=== PATIENT | female | born 1970 | race Caucasian/White ===

== ENCOUNTER 2017-10-24 07:47 | Day surgery (SDC) | payer OTHER ==
[2017-10-23 15:18] LABS: CHLORIDE,CL 101 mmol/L (98-107); SODIUM,NA 137 mmol/L (136-145)
[~2017-10-24 07:47] MED LIST: Lactated Ringers 1,000 ML IV SCH; Sodium Chloride 0.9% 10 ML Syringe FLUSH PRN; Sodium Chloride 0.9% 2.5 ML Syringe FLUSH PRN; ceFAZolin 2 GM in Premix Bag 1 BAG IV ONE
[2017-10-24] MEDS ORDERED: Scopolamine 1.5 MG Transdermal Patch TRDERM PRN (08:16)
--- NOTE | 2017-10-24 08:16 | PCM.PREANE ---
Preanesthetic Assessment - Anesthesia/Transfusion/Family Hx Anesthesia History: Prior Anesthesia Without Reaction Family History of Anesthesia Reaction: No Transfusion History: No Prior Transfusion(s) Intubation History: Unknown - Review of Systems General: No Symptoms Pulmonary: No Symptoms Cardiovascular: No Symptoms Gastrointestinal: No Symptoms Neurological: No Symptoms Other: Reports: None - Physical Assessment O2 Sat by Pulse Oximetry: 99 Respiratory Rate: 16 Vital Signs: Last Vital Signs Temp 36.3 C 10/24/17 08:04 Pulse 89 10/24/17 08:04 Resp 16 10/24/17 08:04 BP 142/90 H 10/24/17 08:04 Pulse Ox 99 10/24/17 08:04 Height: 1.63 m Weight: 100.244 kg ASA Class: 2 Mental Status: Alert & Oriented x3 Airway Class: Mallampati = 2 Dentition: Reports: Normal Dentition Thyro-Mental Finger Breadths: 3 Mouth Opening Finger Breadths: 2 (very narow mouth) Lungs: Clear to Auscultation, Normal Respiratory Effort Cardiovascular: Regular Rate, Regular Rhythm - Lab Values: Laboratory Last Values WBC 10.94 K/uL (4.0-11.0) 10/23/17 14:45 RBC 4.52 M/uL (4.30-5.90) 10/23/17 14:45 Hgb 12.5 g/dL (12.0-16.0) 10/23/17 14:45 Hct 37.8 % (36.0-46.0) 10/23/17 14:45 MCV 83.6 fL (80.0-98.0) 10/23/17 14:45 MCH 27.7 pg (27.0-32.0) 10/23/17 14:45 MCHC 33.1 g/dL (31.0-37.0) 10/23/17 14:45 RDW Std Deviation 41.1 fl (28.0-62.0) 10/23/17 14:45 RDW Coeff of Jeffery 14 % (11.0-15.0) 10/23/17 14:45 Plt Count 297 K/uL (150-400) 10/23/17 14:45 MPV 9.40 fL (7.40-12.00) 10/23/17 14:45 Nucleated RBC % 0.0 /100WBC 10/23/17 14:45 Nucleated RBCs # 0 K/uL 10/23/17 14:45 Sodium 137 mmol/L (136-145) 10/23/17 14:45 Potassium 3.4 mmol/L (3.5-5.1) L 10/23/17 14:45 Chloride 101 mmol/L (98-107) 10/23/17 14:45 Carbon Dioxide 27.5 mmol/L (21.0-32.0) 10/23/17 14:45 BUN 15 mg/dL (7.0-18.0) 10/23/17 14:45 Creatinine 0.9 mg/dL (0.6-1.0) 10/23/17 14:45 Est Cr Clr Drug Dosing 68.16 mL/min 10/23/17 14:45 Estimated GFR (MDRD) > 60.0 ml/min 10/23/17 14:45 Glucose 91 mg/dL (74-106) 10/23/17 14:45 Calcium 8.6 mg/dL (8.5-10.1) 10/23/17 14:45 HCG, Qual NEGATIVE (NEG) 10/23/17 14:45 Blood Type B NEGATIVE 10/23/17 14:45 Antibody Screen NEGATIVE 10/23/17 14:45 - Allergies Allergies/Adverse Reactions: Allergies Allergy/AdvReac Type Severity Reaction Status Date / Time diltiazem Allergy Rash Verified 10/24/17 08:10 - Blood Blood Available: No - Anesthesia Plan Pre-Op Medication Ordered: None Beta Selene: Metoprolol Med Last Dose Date: 10/24/17 Med Last Dose Time: 07:00 - Acknowledgements Anesthesia Type Planned: General Anesthesia Pt an Appropriate Candidate for the Planned Anesthesia: Yes Alternatives and Risks of Anesthesia Discussed w Pt/Guardian: Yes Pt/Guardian Understands and Agrees with Anesthesia Plan: Yes PreAnesthesia Questionnaire HEENT History: Reports: Other (See Below) Other HEENT History: wears glasses Cardiovascular History: Reports: High Cholesterol, Hypertension Gastrointestinal History: Reports: Other (See Below) Other Gastrointestinal History: occasional heartburn Psychiatric History: Reports: Anxiety, Depression Endocrine/Metabolic History: Reports: Obesity/BMI 30+ Hematologic History: Reports: None - Past Surgical History Head Surgeries/Procedures: Reports: None HEENT Surgical History: Reports: Tonsillectomy - SUBSTANCE USE Smoking Status *Q: Never Smoker Recreational Drug Use History: No - HOME MEDS Home Medications: Home Meds Cetirizine [ZyrTEC] 10 mg PO ASDIRECTED 10/22/17 [History] Cholecalciferol (Vitamin D3) [Vitamin D3] 5,000 units PO DAILY 10/22/17 [History ] Metoprolol Tartrate 100 mg PO DAILY 10/22/17 [History] Sertraline HCl 100 mg PO DAILY 10/22/17 [History] Veramyst 1 spray NASBOTH ASDIRECTED PRN 10/22/17 [History] atorvaSTATin Calcium [Atorvastatin Calcium] 10 mg PO DAILY 10/22/17 [History] hydroCHLOROthiazide [Hydrochlorothiazide] 25 mg PO DAILY 10/22/17 [History] - CURRENT (IN HOUSE) MEDS Current Meds: Current Medications Lactated Ringer's (Ringers, Lactated) 1,000 mls @ 500 mls/hr IV BOLUS MADELYN Last Admin: 10/24/17 08:13 Dose: 500 mls/hr Sodium Chloride (Saline Flush) 10 ml FLUSH ASDIRECTED PRN PRN Reason: Keep Vein Open Sodium Chloride (Saline Flush) 2.5 ml FLUSH ASDIRECTED PRN PRN Reason: Keep Vein Open Discontinued Medications Cefazolin Sodium/Dextrose 2 gm (/ Premix) 50 mls @ 100 mls/hr IV ONETIME ONE Stop: 10/23/17 14:16
[2017-10-24] MEDS ORDERED: Rocuronium 10 MG/ML 10 ML Syringe ONE (08:48)
[2017-10-24] MEDS ORDERED: Ondansetron 4 MG/2 ML SDV ONE (08:48)
[2017-10-24] MEDS ORDERED: Lidocaine 2% 5 ML SDV ONE ×2 (08:48→09:11)
[2017-10-24] MEDS ORDERED: Propofol 200 MG/20 ML SDV ONE (08:49)
[2017-10-24] MEDS ORDERED: Midazolam 1 MG/ML 2 ML SDV ONE (08:49)
[2017-10-24] MEDS ORDERED: fentaNYL 250 MCG/5 ML SDV ONE (08:49)
[2017-10-24] MEDS ORDERED: Succinylcholine 200 MG/10 ML MDV ONE (09:30)
[2017-10-24] MEDS ORDERED: fentaNYL 100 MCG/2 ML SDV IVPUSH PRN (10:08)
[2017-10-24] MEDS ORDERED: HYDROmorphone 2 MG/ML SDV ONE (10:16)
[2017-10-24] MEDS ORDERED: ePHEDrine 50 MG/ML SDV ONE (10:22)
[2017-10-24] MEDS ORDERED: Octyl 2-Cyanoacrylate 1 Tube ONE (10:35)
[2017-10-24] MEDS ORDERED: Fluorescein 5 ML Vial ONE (10:35)
[2017-10-24] MEDS ORDERED: Furosemide 40 MG/4 ML VIAL ONE (10:36)
[2017-10-24] MEDS ORDERED: Neostigmine Methylsulfate 1 MG/ML 5 ML Syringe ONE (10:47)
[2017-10-24] MEDS ORDERED: Glycopyrrolate 0.2 MG/ML SDV ONE (10:47)
[2017-10-24] MEDS ORDERED: diphenhydrAMINE 50 MG/ML SDV ONE (10:48)
[2017-10-24] MEDS ORDERED: Dexamethasone 4 MG/ML 5 ML MDV ONE (10:48)
[2017-10-24] MEDS ORDERED: Ketorolac 30 MG/ML SDV IVPUSH ONE (10:55)
[2017-10-24] MEDS ORDERED: Acetaminophen/oxyCODONE 325-5 MG Tab PO PRN ×2 (10:55)
[2017-10-24] MEDS ORDERED: Ondansetron 4 MG/2 ML SDV IVPUSH PRN (10:55)
[2017-10-24] MEDS ORDERED: Ketorolac 30 MG/ML SDV IVPUSH PRN (10:55)
[2017-10-24] MEDS ORDERED: Promethazine 25 MG/ML SDV IM PRN (10:55)
[2017-10-24] MEDS ORDERED: Morphine 2 MG/ML Syringe IVPUSH PRN (10:55)
--- NOTE | 2017-10-24 11:00 | PCM.OPNOTE ---
- General Post-Op/Procedure Note Date of Surgery/Procedure: 10/24/17 Operative Procedure(s): TLH,BSO and Cystoscopy Pre Op Diagnosis: DUB Post-Op Diagnosis: Same Anesthesia Technique: General ET Tube Primary Surgeon: Archie Chatterjee Manager Stylist: Racheal Quiles EBL in mLs: 100 Complications: None Condition: Good
--- NOTE | 2017-10-24 12:14 | PCM.POSTAN ---
POST ANESTHESIA ASSESSMENT - MENTAL STATUS Mental Status: Alert, Oriented - VITAL SIGNS Pulse Rate: 80 SaO2: 94 Resp Rate: 12 - RESPIRATORY Respiratory Status: Respiratory Rate WNL, Airway Patent, O2 Saturation Stable - CARDIOVASCULAR CV Status: Pulse Rate WNL, Blood Pressure Stable - GASTROINTESTINAL GI Status: No Symptoms - PAIN Pain Score: 2 - POST OP HYDRATION Hydration Status: Adequate & Stable
--- NOTE | 2017-10-24 17:21 | OR ---
SURGEON: Archie Chatterjee MD DATE OF PROCEDURE: 10/24/2017 PREOPERATIVE DIAGNOSES: Menometrorrhagia, pelvic pain, fibroid uterus. POSTOPERATIVE DIAGNOSES: Menometrorrhagia, pelvic pain, fibroid uterus. OPERATIONS PERFORMED: Total laparoscopic hysterectomy, laparoscopic bilateral salpingo-oophorectomy, and cystoscopy. FOOD SERVICE ASSOCIATE: JENNA Bermudez ANESTHESIA: General endotracheal intubation, Maria C Simpson and Dr. Deluna. ESTIMATED BLOOD LOSS: Less than 100 mL. COMPLICATIONS: None. FINDINGS: Uterus about 12-week size. Ovary essentially is normal. INDICATION FOR SURGERY: This patient is 47. She had menometrorrhagia and pelvic pain and fibroid uterus by the examination and ultrasound. The patient is admitted for a total laparoscopic hysterectomy. She is consented for bilateral salpingo- oophorectomy, and cystoscopy. PROCEDURE IN DETAIL: The patient was brought to the OR, properly identified and after adequate level of general anesthesia, the patient was placed in lithotomy position with an access to the abdomen and the vagina. The patient was prepped and draped in sterile fashion as usual and then a straight Trejo catheter was placed in the bladder for manipulation and then small mass manipulator was placed in the uterus for manipulation. Then, after properly deflating both balloon of the manipulator, the operation shifted abdominally. Stab wound done beneath the umbilicus. The Veress needle was placed in the peritoneal cavity and that cavity insufflated with 3.5 L of carbon dioxide. Then, using the Visiport technique, the peritoneal cavity was entered infraumbilically with a 5 mm trocar and the scope without any problem. Inspection of the pelvis organ with the scope revealed the above-mentioned dictated finding. Then, a 10 to 12 trocar placed in the left iliac fossa and 5 mm trocar in the right iliac fossa. The patient was placed in steep Trendelenburg and intestine is retracted away from the operative field. The operation was started by identifying the landmark of the pelvis. Once we did that, using the Silviano Harmonic scapula, the superior pedicle coagulated and transected to tubes, and ovary is included with the specimen on both sides. Then, the round ligament coagulated and transected, and then the anterior leaf of the broad ligament dissected downward medially pushing the bladder completely away from the lower uterine segment. Skeletonization of the level of the uterine vessel was done at the level of the internal ring of the manipulator and then uterine vessel on both sides coagulated and transected using the Silviano Harmonic scapula. Once that is done, again using the Silviano Harmonic scapula, circular incision in the vaginal mucosa around the tip of the manipulator detaching the cervix from its attachment to the uterus. The tubes, cervix, and ovaries removed vaginally and pneumoperitoneum re-established by placing vaginal pack in the vagina. A thorough irrigation of the entire operative field. Inspection of the all the pedicle shows no oozing, no bleeding. We proceeded to close the vaginal cuff laparoscopically using 2-0 PDS interrupted sutures. While we were doing that, we asked Anesthesia personnel to give the patient fluorescein and after closing the vagina and deflating the abdomen and removing the Trejo catheter, cystoscopy was performed. The bladder was intact. Both ureteric orifices were seen with the dye coming from both of them. Thus, the patency of both ureters verified and satisfied with these findings. The procedure was ended after closing the laparoscopic incision in layer. Instrument and sponge count were correct. The patient tolerated the procedure well and went to recovery room in stable general condition. TAO / TRISTA /[id number]
[2017-10-25 05:39] LABS: CHLORIDE,CL 103 mmol/L (98-107); SODIUM,NA 140 mmol/L (136-145)
--- NOTE | 2017-10-25 07:52 | PCM48HPAN ---
Post Anesthesia Note - EVALUATION WITHIN 48HRS OF ANESTHETIC Vital Signs in Normal Range: Yes Patient Participated in Evaluation: Yes Respiratory Function Stable: Yes Airway Patent: Yes Cardiovascular Function Stable: Yes Hydration Status Stable: Yes Pain Control Satisfactory: Yes Nausea and Vomiting Control Satisfactory: Yes Mental Status Recovered: Yes Pulse Rate: 80 Resp Rate: 17
--- NOTE | 2017-10-25 09:26 | PCM.SURGPN ---
- General Info Date of Service: 10/25/17 POD#: 1 Functional Status: Reports: Pain Controlled - Review of Systems General: Reports: No Symptoms HEENT: Reports: No Symptoms Pulmonary: Reports: No Symptoms Cardiovascular: Reports: No Symptoms Gastrointestinal: Reports: No Symptoms Genitourinary: Reports: No Symptoms Musculoskeletal: Reports: No Symptoms Skin: Reports: No Symptoms Neurological: Reports: No Symptoms Psychiatric: Reports: No Symptoms - Patient Data Vitals - Most Recent: Last Vital Signs Temp 37.2 C 10/25/17 07:55 Pulse 72 10/25/17 07:55 Resp 16 10/25/17 07:55 BP 125/77 10/25/17 07:55 Pulse Ox 96 10/25/17 07:55 Weight - Most Recent: 100.244 kg I&O - Last 24 Hours: Intake & Output 10/24/17 10/25/17 10/25/17 22:59 06:59 14:59 Intake Total 400 600 Output Total 450 2300 Balance -50 -1700 Lab Results Last 24 Hrs: Laboratory Results - last 24 hr 10/25/17 10/25/17 Range/Units 05:00 05:00 WBC 12.63 H (4.0-11.0) K/uL RBC 3.99 L (4.30-5.90) M/uL Hgb 11.0 L (12.0-16.0) g/dL Hct 33.7 L (36.0-46.0) % MCV 84.5 (80.0-98.0) fL MCH 27.6 (27.0-32.0) pg MCHC 32.6 (31.0-37.0) g/dL RDW Std Deviation 41.6 (28.0-62.0) fl RDW Coeff of Jeffery 14 (11.0-15.0) % Plt Count 239 (150-400) K/uL MPV 9.80 (7.40-12.00) fL Neut % (Auto) 73.4 (48.0-80.0) % Lymph % (Auto) 19.4 (16.0-40.0) % [place] % (Auto) 6.9 (0.0-15.0) % Eos % (Auto) 0.1 (0.0-7.0) % Baso % (Auto) 0.2 (0.0-1.5) % Neut # (Auto) 9.3 H (1.4-5.7) K/uL Lymph # (Auto) 2.5 H (0.6-2.4) K/uL [place] # (Auto) 0.9 H (0.0-0.8) K/uL Eos # (Auto) 0.0 (0.0-0.7) K/uL Baso # (Auto) 0.0 (0.0-0.1) K/uL Nucleated RBC % 0.0 /100WBC Nucleated RBCs # 0 K/uL Sodium 140 (136-145) mmol/L Potassium 3.4 L (3.5-5.1) mmol/L Chloride 103 (98-107) mmol/L Carbon Dioxide 27.7 (21.0-32.0) mmol/L BUN 10 (7.0-18.0) mg/dL Creatinine 0.9 (0.6-1.0) mg/dL Est Cr Clr Drug Dosing 68.16 mL/min Estimated GFR (MDRD) > 60.0 ml/min Glucose 108 H (74-106) mg/dL Calcium 9.6 (8.5-10.1) mg/dL Med Orders - Current: Current Medications Fentanyl (Sublimaze) 50 mcg IVPUSH SEECOMMENT PRN PRN Reason: Pain (moderate 4-6) Lactated Ringer's (Ringers, Lactated) 1,000 mls @ 500 mls/hr IV BOLUS MADELYN Last Admin: 10/24/17 08:13 Dose: 500 mls/hr Ketorolac Tromethamine (Toradol) 30 mg IVPUSH Q6H PRN PRN Reason: Pain (severe 7-10) Stop: 10/29/17 10:55 Morphine Sulfate (Morphine) 4 mg IVPUSH Q2H PRN PRN Reason: Pain (severe 7-10) Ondansetron HCl (Zofran) 4 mg IVPUSH Q6H PRN PRN Reason: Nausea/Vomiting Last Admin: 10/24/17 15:10 Dose: 4 mg Oxycodone/Acetaminophen (Percocet 325-5 Mg) 1 tab PO Q4H PRN PRN Reason: Pain (moderate 4-6) Oxycodone/Acetaminophen (Percocet 325-5 Mg) 2 tab PO Q4H PRN PRN Reason: Pain (moderate 4-6) Promethazine HCl (Phenergan) 25 mg IM Q6H PRN PRN Reason: Nausea/Vomiting Scopolamine (Transderm-Scop) 1.5 mg TRDERM Q72H PRN PRN Reason: Nausea Last Admin: 10/24/17 08:24 Dose: 1.5 mg Sodium Chloride (Saline Flush) 10 ml FLUSH ASDIRECTED PRN PRN Reason: Keep Vein Open Sodium Chloride (Saline Flush) 2.5 ml FLUSH ASDIRECTED PRN PRN Reason: Keep Vein Open Discontinued Medications Dexamethasone (Dexamethasone) Confirm Administered Dose 20 mg .ROUTE .STK-MED ONE Stop: 10/24/17 10:49 Diphenhydramine HCl (Benadryl) Confirm Administered Dose 50 mg .ROUTE .STK-MED ONE Stop: 10/24/17 10:49 Ephedrine Sulfate (Ephedrine Sulfate) Confirm Administered Dose 50 mg .ROUTE .STK-MED ONE Stop: 10/24/17 10:23 Fentanyl (Sublimaze) Confirm Administered Dose 250 mcg .ROUTE .STK-MED ONE Stop: 10/24/17 08:50 Fluorescein Sodium (Ak-Fluor) Confirm Administered Dose 5 ml .ROUTE .STK-MED ONE Stop: 10/24/17 10:36 Furosemide (Lasix) Confirm Administered Dose 40 mg .ROUTE .STK-MED ONE Stop: 10/24/17 10:37 Glycopyrrolate (Robinul) Confirm Administered Dose 0.6 mg .ROUTE .STK-MED ONE Stop: 10/24/17 10:48 Hydromorphone HCl (Dilaudid) Confirm Administered Dose 2 mg .ROUTE .STK-MED ONE Stop: 10/24/17 10:17 Cefazolin Sodium/Dextrose 2 gm (/ Premix) 50 mls @ 100 mls/hr IV ONETIME ONE Stop: 10/23/17 14:16 Last Admin: 10/24/17 13:50 Dose: Not Given Acetaminophen (Ofirmev) Confirm Administered Dose 100 mls @ as directed IV .STK- MED ONE Stop: 10/24/17 09:47 Ketorolac Tromethamine (Toradol) 30 mg IVPUSH ONETIME ONE Stop: 10/24/17 10:56 Last Admin: 10/24/17 12:04 Dose: 30 mg Lidocaine (Xylocaine-Mpf 2%) Confirm Administered Dose 10 ml .ROUTE .STK-MED ONE Stop: 10/24/17 08:49 Lidocaine (Xylocaine-Mpf 2%) Confirm Administered Dose 5 ml .ROUTE .STK-MED ONE Stop: 10/24/17 09:12 Midazolam HCl (Versed 1 Mg/Ml) Confirm Administered Dose 2 mg .ROUTE .STK-MED ONE Stop: 10/24/17 08:50 Neostigmine Methylsulfate (Neostigmine) Confirm Administered Dose 5 mg .ROUTE .STK-MED ONE Stop: 10/24/17 10:48 Octyl Cyanoacrylate (Dermabond Advance) Confirm Administered Dose 1 applic .ROUTE .STK-MED ONE Stop: 10/24/17 10:36 Ondansetron HCl (Zofran) Confirm Administered Dose 4 mg .ROUTE .STK-MED ONE Stop: 10/24/17 08:49 Propofol (Diprivan 20 Ml) Confirm Administered Dose 200 mg .ROUTE .STK-MED ONE Stop: 10/24/17 08:50 Rocuronium Rowe (Zemuron) Confirm Administered Dose 100 mg .ROUTE .STK-MED ONE Stop: 10/24/17 08:49 Succinylcholine Chloride (Quelicin) Confirm Administered Dose 200 mg .ROUTE .STK -MED ONE Stop: 10/24/17 09:31 - Exam Wound/Incisions: Healing Well General: Alert, Oriented HEENT: Pupils Equal Neck: Supple Lungs: Clear to Auscultation, Normal Respiratory Effort Cardiovascular: Regular Rate, Regular Rhythm GI/Abdominal Exam: Normal Bowel Sounds, Soft, Non-Tender, No Organomegaly, No Distention, No Abnormal Bruit, No Mass, Pelvis Stable Extremities: Normal Inspection, Normal Range of Motion, Non-Tender, No Pedal Edema, Normal Capillary Refill Skin: Warm, Dry, Intact Neurological: No New Focal Deficit Psy/Mental Status: Alert, Normal Affect, Normal Mood - Problem List Review Problem List Initiated/Reviewed/Updated: Yes - My Orders Last 24 Hours: Active Orders 24 hr Category Date Time Status Patient Status [ADT] Routine ADT 10/24/17 10:55 Active Notify Provider Vital Signs [RC] ASDIRECTED Care 10/24/17 10:55 Active RT Incentive Spirometry [RC] Q2HWA Care 10/24/17 10:55 Active Up With Assistance [RC] PER UNIT ROUTINE Care 10/24/17 10:55 Active Up ad Claire [RC] PER UNIT ROUTINE Care 10/24/17 10:55 Active Vital Signs [RC] PER UNIT ROUTINE Care 10/24/17 10:55 Active Regular Diet [DIET] Diet 10/24/17 Lunch Active Acetaminophen/oxyCODONE [Percocet 325-5 MG] Med 10/24/17 10:55 Active 1 tab PO Q4H PRN Acetaminophen/oxyCODONE [Percocet 325-5 MG] Med 10/24/17 10:55 Active 2 tab PO Q4H PRN Ketorolac [Toradol] Med 10/24/17 10:55 Active 30 mg IVPUSH Q6H PRN Morphine Med 10/24/17 10:55 Active 4 mg IVPUSH Q2H PRN Ondansetron [Zofran] Med 10/24/17 10:55 Active 4 mg IVPUSH Q6H PRN Promethazine [Phenergan] Med 10/24/17 10:55 Active 25 mg IM Q6H PRN fentaNYL [Sublimaze] Med 10/24/17 10:08 Active 50 mcg IVPUSH SEECOMMENT PRN Peripheral IV Discontinue [OM.PC] Routine Oth 10/24/17 10:55 Ordered Sequential Compression Device [OM.PC] Per Unit Routine Oth 10/24/17 10:55 Ordered Resuscitation Status Routine Resus Stat 10/24/17 10:55 Ordered Medication Orders Fentanyl (Sublimaze) 50 mcg IVPUSH SEECOMMENT PRN PRN Reason: Pain (moderate 4-6) Lactated Ringer's (Ringers, Lactated) 1,000 mls @ 500 mls/hr IV BOLUS MADELYN Last Admin: 10/24/17 08:13 Dose: 500 mls/hr Ketorolac Tromethamine (Toradol) 30 mg IVPUSH Q6H PRN PRN Reason: Pain (severe 7-10) Stop: 10/29/17 10:55 Morphine Sulfate (Morphine) 4 mg IVPUSH Q2H PRN PRN Reason: Pain (severe 7-10) Ondansetron HCl (Zofran) 4 mg IVPUSH Q6H PRN PRN Reason: Nausea/Vomiting Last Admin: 10/24/17 15:10 Dose: 4 mg Oxycodone/Acetaminophen (Percocet 325-5 Mg) 1 tab PO Q4H PRN PRN Reason: Pain (moderate 4-6) Oxycodone/Acetaminophen (Percocet 325-5 Mg) 2 tab PO Q4H PRN PRN Reason: Pain (moderate 4-6) Promethazine HCl (Phenergan) 25 mg IM Q6H PRN PRN Reason: Nausea/Vomiting Scopolamine (Transderm-Scop) 1.5 mg TRDERM Q72H PRN PRN Reason: Nausea Last Admin: 10/24/17 08:24 Dose: 1.5 mg Sodium Chloride (Saline Flush) 10 ml FLUSH ASDIRECTED PRN PRN Reason: Keep Vein Open Sodium Chloride (Saline Flush) 2.5 ml FLUSH ASDIRECTED PRN PRN Reason: Keep Vein Open - Assessment Assessment (Free Text/Narrative):: Status post laparoscopic hysterectomy postoperative day #1 the patient pain under control she have minimum vaginal bleeding laparoscopic incision is clean and dry had lab work is in within normal limit she is on regular diet she is ambulatory she is voiding and passing gas without any problem - Plan Plan (Free Text/Narrative):: I am discharging the patient today the postvasectomy instruction patient Percocet 7.5/325 for postoperative pain and she is to come to the office for late postoperative examination in 1 week
== END 2017-10-25 09:35 | disposition home or self-care (01) ==
LOC: MW.SDS 07:47 → MW.OB 07:47 → UNDOADMIN 07:47 → EDSTATUS 09:15 → MW.MS 10:55 → MW.OB 10:55 → MW.MS 10:55 → MW.SDS 10-25 09:35
PROVIDERS: ATTEND Obstetrics & Gynecology
DX: D25.9 Leiomyoma of uterus, unspecified (principal); I10 Essential (primary) hypertension; E66.9 Obesity, unspecified; Z68.38 Body mass index [BMI] 38.0-38.9, adult; E78.00 Pure hypercholesterolemia, unspecified; F41.9 Anxiety disorder, unspecified; F32.9 Major depressive disorder, single episode, unspecified; Z79.899 Other long term (current) drug therapy
CPT/HCPCS: 36415; 58571; 80048; 84703; 85025; 85027; 86850; 86900; 86901; A9270; J0131; J0330; J0690; J1100; J1170; J1200; J1885; J1940; J2250; J2405; J2704; J3010; J3490; J7120; 88309

== ENCOUNTER 2020-01-27 08:03 | Emergency (ER) | payer OTHER, BC ==
[2020-01-27] MEDS ORDERED: Acetaminophen/HYDROcodone 325-5 MG Tab PO ONE (08:52)
[2020-01-27] MEDS ORDERED: Ondansetron 4 MG Tab.DIS PO ONE (08:53)
--- NOTE | 2020-01-27 10:08 | CR ---
Indication: Trauma Technique: Two images of the right elbow were acquired Comparison: None Findings: There is a dorsal dislocation at the elbow joint. The radius and ulna are displaced posteriorly and laterally. The proximal radioulnar joint appears to be intact. There is a fracture fragment identified in this area though the bone of origin is not identified on this study. Reimaging after reduction of the dislocation is advised Impression: Dorsal fracture dislocation. There is a small fracture fragment visible though the bone of origin is not visible on this study. Statistically this most likely the coronoid process though reimaging after reduction of the dislocation is advised Dictated by Loi Abdi MD @ Jan 27 2020 10:04AM Signed by Dr. Loi Abdi @ Jan 27 2020 10:06AM
--- NOTE | 2020-01-27 10:08 | CR ---
Indication: Injury Technique: Single view of the right humerus Comparison: The elbow study from earlier the same day Findings: Within the limitations of a single-view study, I see no fracture involving the humerus. There is a dorsal dislocation at the elbow joint. A small fracture fragment is identified associated with elbow dislocation though the bone of origin is not certain. Impression: No fracture the humerus visible on this single-view study. There is a fracture fragment associated with the dorsal dislocation of the elbow though the bone of origin of this fragment is uncertain. Dictated by Loi Abdi MD @ Jan 27 2020 10:06AM Signed by Dr. Loi Abdi @ Jan 27 2020 10:08AM
--- NOTE | 2020-01-27 10:11 | CR ---
Indication: Injury Technique: A total of two views of the right shoulder were acquired. Comparison: None Findings: Bones: Alignment is normal. No fractures or bone lesions. Joint spaces: Unremarkable. Soft tissues: Unremarkable. Impression: Normal two-view examination of the right shoulder. Dictated by Loi Abdi MD @ Jan 27 2020 10:08AM Signed by Dr. Loi Abdi @ Jan 27 2020 10:09AM
[2020-01-27] MEDS ORDERED: Propofol 200 MG/20 ML SDV ONE (10:24)
[2020-01-27] MEDS ORDERED: Midazolam 1 MG/ML 2 ML SDV ONE (10:25)
[2020-01-27] MEDS ORDERED: fentaNYL 100 MCG/2 ML SDV ONE (10:25)
[2020-01-27] MEDS ORDERED: Lactated Ringers 1,000 ML IV SCH (10:30)
--- NOTE | 2020-01-27 10:32 | PCM.PREANE ---
Preanesthetic Assessment - Anesthesia/Transfusion/Family Hx Anesthesia History: Prior Anesthesia Without Reaction Family History of Anesthesia Reaction: No Transfusion History: No Prior Transfusion(s) Intubation History: Unknown - Physical Assessment NPO Status Date: 01/27/20 NPO Status Time: 00:05 Vital Signs: Last Vital Signs Temp 36.0 C L 01/27/20 08:15 Pulse 67 01/27/20 08:54 Resp 16 01/27/20 08:54 BP 128/72 01/27/20 08:54 Pulse Ox 98 01/27/20 08:54 Height: 1.65 m Weight: 102.058 kg ASA Class: 2E - Allergies Allergies/Adverse Reactions: Allergies Allergy/AdvReac Type Severity Reaction Status Date / Time diltiazem Allergy Rash Verified 01/27/20 08:15 - Acknowledgements Anesthesia Type Planned: MAC Pt an Appropriate Candidate for the Planned Anesthesia: Yes Alternatives and Risks of Anesthesia Discussed w Pt/Guardian: Yes Pt/Guardian Understands and Agrees with Anesthesia Plan: Yes PreAnesthesia Questionnaire HEENT History: Reports: Other (See Below) Other HEENT History: wears glasses Cardiovascular History: Reports: High Cholesterol, Hypertension Respiratory History: Reports: None Gastrointestinal History: Reports: Other (See Below) Other Gastrointestinal History: occasional heartburn Genitourinary History: Reports: None 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: Musculoskeletal History: Reports: None Neurological History: Reports: None Psychiatric History: Reports: Anxiety, Depression Endocrine/Metabolic History: Reports: Obesity/BMI 30+ Hematologic History: Reports: None Oncologic (Cancer) History: Reports: None Dermatologic History: Reports: None - Infectious Disease History Infectious Disease History: Reports: Chicken Pox - Past Surgical History Head Surgeries/Procedures: Reports: None HEENT Surgical History: Reports: Tonsillectomy - SUBSTANCE USE Tobacco Use Status *Q: Never Tobacco User Recreational Drug Use History: No - HOME MEDS Home Medications: Home Meds Cetirizine [ZyrTEC] 10 mg PO ASDIRECTED 10/22/17 [History] Cholecalciferol (Vitamin D3) [Vitamin D3] 5,000 units PO DAILY 10/22/17 [History] Metoprolol Tartrate 100 mg PO DAILY 10/22/17 [History] Sertraline HCl 100 mg PO DAILY 10/22/17 [History] Veramyst 1 spray NASBOTH ASDIRECTED PRN 10/22/17 [History] atorvaSTATin Calcium [Atorvastatin Calcium] 10 mg PO DAILY 10/22/17 [History] hydroCHLOROthiazide [Hydrochlorothiazide] 25 mg PO DAILY 10/22/17 [History] - CURRENT (IN HOUSE) MEDS Current Meds: Current Medications Lactated Ringer's (Ringers, Lactated) 1,000 mls @ 125 mls/hr IV ASDIRECTED MADELYN Last Admin: 01/27/20 10:26 Dose: 125 mls/hr Documented by: Discontinued Medications Hydrocodone Bitart/Acetaminophen ([place] 325-5 Mg) 1 tab PO ONETIME ONE Stop: 01/27/20 08:53 Last Admin: 01/27/20 08:56 Dose: 1 tab Documented by: Fentanyl (Sublimaze) Confirm Administered Dose 100 mcg .ROUTE .STK-MED ONE Stop: 01/27/20 10:26 Midazolam HCl (Versed 1 Mg/Ml) Confirm Administered Dose 2 mg .ROUTE .STK-MED ONE Stop: 01/27/20 10:26 Ondansetron HCl (Zofran Odt) 4 mg PO ONETIME ONE Stop: 01/27/20 08:54 Last Admin: 01/27/20 08:56 Dose: 4 mg Documented by: Propofol (Diprivan 20 Ml) Confirm Administered Dose 200 mg .ROUTE .STK-MED ONE Stop: 01/27/20 10:25
--- NOTE | 2020-01-27 11:10 | PCM.POSTAN ---
POST ANESTHESIA ASSESSMENT - MENTAL STATUS Mental Status: Alert - VITAL SIGNS Vital Signs: Last Vital Signs Temp 36.0 C L 01/27/20 08:15 Pulse 81 01/27/20 11:08 Resp 16 01/27/20 11:08 BP 118/67 01/27/20 11:08 Pulse Ox 96 01/27/20 11:08 - RESPIRATORY Respiratory Status: Respiratory Rate WNL - CARDIOVASCULAR CV Status: Pulse Rate WNL - GASTROINTESTINAL GI Status: No Symptoms - POST OP HYDRATION Hydration Status: Adequate & Stable
--- NOTE | 2020-01-27 11:11 | PCM48HPAN ---
Post Anesthesia Note - EVALUATION WITHIN 48HRS OF ANESTHETIC Vital Signs in Normal Range: Yes Patient Participated in Evaluation: Yes Respiratory Function Stable: Yes Airway Patent: Yes Cardiovascular Function Stable: Yes Hydration Status Stable: Yes Pain Control Satisfactory: Yes Nausea and Vomiting Control Satisfactory: Yes Mental Status Recovered: Yes Vital Signs: Last Vital Signs Temp 36.0 C L 01/27/20 08:15 Pulse 81 01/27/20 11:08 Resp 16 01/27/20 11:08 BP 118/67 01/27/20 11:08 Pulse Ox 96 01/27/20 11:08
--- NOTE | 2020-01-27 11:57 | CR ---
Indication: Postreduction Technique: A total of two views of the right elbow were acquired.Overlying splinting material obscures oasis detail Comparison: Earlier the same day Findings: Dislocation has been reduced. A small osseous fragment is seen on the ulnar side of the coronoid process likely a small avulsion injury. There also findings suggesting a radial head fracture. Impression: 1. The dislocation has been reduced. 2. The small avulsion fragment noted previously is located at the coronoid process at its inner aspect. 3. Probable radial head fracture Dictated by Loi Abdi MD @ Jan 27 2020 11:53AM Signed by Dr. Loi Abdi @ Jan 27 2020 11:56AM
--- NOTE | 2020-01-27 12:12 | EDM.PDOC ---
ED HPI GENERAL MEDICAL PROBLEM - General Chief Complaint: Upper Extremity Injury/Pain Stated Complaint: FALL Time Seen by Provider: 01/27/20 08:24 - History of Present Illness INITIAL COMMENTS - FREE TEXT/NARRATIVE: CHIEF COMPLAINT(S): Accidental fall HISTORY OF PRESENT ILLNESS: This is a 49-year-old woman with a past medical history of hypertension and hyperlipidemia who comes to the emergency department with a chief complaint of accidental fall. She states that on her way to work she slipped and fell on a patch of ice and fell onto her right elbow and shoulder. She denies any head injury or loss of consciousness. She denies any use of oral anticoagulation. She denies any headache, and vomiting but states that she is experiencing some nausea. She states that she does not tolerate pain well. She rates her pain as 10 out of 10 located in her right arm. She states that she is unable to move it. She denies any numbness or tingling. She denies any hip pain and was ambulatory after the fall. She denies any other symptoms REVIEW OF SYSTEMS: Constitutional: Denies fever, chills. Eyes: Denies eye pain Ears, Nose, Mouth, & Throat: Denies earache Cardiovascular: Denies chest pain Respiratory: Denies shortness of breath Gastrointestinal: Denies Nausea, vomiting, diarrhea, hematochezia. Genitourinary: Denies hematuria MSK: Positive for right elbow pain Neurological: Denies blurred vision, numbness, tingling, weakness, headache Psychiatric: Denies depression PAST MEDICAL HISTORY: As per history of present illness and as reviewed below otherwise noncontributory. SURGICAL HISTORY: As per history of present illness and as reviewed below otherwise noncontributory. SOCIAL HISTORY: As per history of present illness and as reviewed below otherwise noncontributory. FAMILY HISTORY: As per history of present illness and as reviewed below otherwise noncontributory. EXAMINATION OF ORGAN SYSTEMS/BODY AREAS: Constitutional: Blood pressure was 128/72, heart rate 67, respiratory rate 16 with an oxygen saturation 98% on room air. Temperature 36.0 General: Middle-aged woman who does not appear to be in acute distress Psychiatric: Appropriate mood and affect. Eyes: No scleral icterus or conjunctival erythema ENMT: Moist mucous membranes. No pharyngeal erythema Cardiovascular: Regular, rate, and rhythm. No gallops, murmurs, or rubs. Bilateral upper extremity pulses symmetric and intact. No peripheral edema. No JVD. Respiratory: Lungs clear to auscultation bilaterally. No wheezes, rales, or rhonchi. Gastrointestinal: Soft, non-tender, non-distended. Normoactive bowel sounds Genitourinary: No suprapubic tenderness Musculoskeletal: There is tenderness to palpation along the right elbow. No obvious deformity. Tenderness along the right humeral area with no obvious deformity. No skin changes. Distal sensation is intact. Capillary refill is less than 2 seconds. Shoulder range of movement, elbow range of movement on that side are limited secondary to pain. Skin: No lesions or abrasions. Neurological: Alert, GCS 15 distal sensation intact MEDICAL DECISION MAKING AND COURSE IN THE ED WITH INTERPRETATION/REVIEW OF DIAGNOSTIC STUDIES: This is a 49-year-old woman with a past medical history of hypertension who comes to the emergency department with right arm injury status post mechanical fall. At this time we will provide the patient with [place] p.o. for pain relief and Zofran 4 mg for the nausea. Will obtain a right humeral, right shoulder, and right elbow x-ray. I do not believe any other labs or imaging are indicated. The radiological images were viewed by myself along with reading the report from the radiologist. Right shoulder x-ray reveals no abnormality of the right shoulder. Right elbow x-ray does reveal a dorsal fracture dislocation. There is a small fracture fragment visible though the bone of origin is not visible on the study. Statistically this is most likely the coronoid process. Right humeral x-ray reveals no fracture of the humerus. After imaging I did discuss the results with the patient. At this time we did contact anesthesiology for procedural sedation in order to perform a dislocation/fracture reduction. The patient was amenable to this plan and consent was signed and placed in chart. Fracture Reduction Procedure Note Performed by: Myself Consent: Written consent obtained. Risks and benefits: risks, benefits and alternatives were discussed Consent given by: Patient Patient understanding: Patient states understanding of the procedure being performed Patient consent: Patient understanding of the procedure matches consent given Patient identity confirmed: verbally with patient and arm band Time out: Immediately prior to procedure a "time out" was called to verify the correct patient, procedure, equipment, security support analyst and site/side marked as required. Location details: Right elbow Reduction Procedure: axial pull and closed manipulation of right elbow dislocation Results: Post reduction alignement improved and a sugar tong splint was placed and shoulder sling. Complication: Tolerated well without complication. 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 Distal sensation intact in the distal right arm with full range of motion of the fingers. Post Reduction Imaging: The right elbow dislocation has been reduced. There is a small avulsion fragment noted previously and located in the coronoid process at its inner aspect. There is a probable radial head fracture After post reduction and observation the patient was informed of the post reduction film. I did discuss with her that I would like her to follow-up with Dr. Harding within 1 to 2 weeks. She was amenable to discharge at this time and had no further questions. She is to take Tylenol and Motrin for pain relief at home. DISPOSITION: The patient was discharged home in stable condition. The patient will follow up with Dr. Harding within 1-2 CONDITION: Fair PROCEDURES: Fracture/dislocation of the right elbow reduction FINAL IMPRESSION(S)/DIAGNOSES: 1. Acute right elbow dislocation status post reduction 2. Acute small avulsion fragment of the coronoid process 3. Acute probable right radial head fracture [place] Prescott M.D. Right Arm Pain Score (Numeric/FACES): 5 - Related Data Allergies Allergy/AdvReac Type Severity Reaction Status Date / Time diltiazem Allergy Rash Verified 01/27/20 08:15 Home Meds: Home Meds Cetirizine [ZyrTEC] 10 mg PO ASDIRECTED 10/22/17 [History] Cholecalciferol (Vitamin D3) [Vitamin D3] 5,000 units PO DAILY 10/22/17 [History] Metoprolol Tartrate 100 mg PO DAILY 10/22/17 [History] Sertraline HCl 100 mg PO DAILY 10/22/17 [History] Veramyst 1 spray NASBOTH ASDIRECTED PRN 10/22/17 [History] atorvaSTATin Calcium [Atorvastatin Calcium] 10 mg PO DAILY 10/22/17 [History] hydroCHLOROthiazide [Hydrochlorothiazide] 25 mg PO DAILY 10/22/17 [History] Past Medical History HEENT History: Reports: Other (See Below) Other HEENT History: wears glasses Cardiovascular History: Reports: High Cholesterol, Hypertension Respiratory History: Reports: None Gastrointestinal History: Reports: Other (See Below) Other Gastrointestinal History: occasional heartburn Genitourinary History: Reports: None 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: Musculoskeletal History: Reports: None Neurological History: Reports: None Psychiatric History: Reports: Anxiety, Depression Endocrine/Metabolic History: Reports: Obesity/BMI 30+ Hematologic History: Reports: None Oncologic (Cancer) History: Reports: None Dermatologic History: Reports: None - Infectious Disease History Infectious Disease History: Reports: Chicken Pox - Past Surgical History Head Surgeries/Procedures: Reports: None HEENT Surgical History: Reports: Tonsillectomy Social & Family History - Tobacco Use Tobacco Use Status *Q: Never Tobacco User - Caffeine Use Caffeine Use: Reports: Soda - Recreational Drug Use Recreational Drug Use: No Review of Systems - Review of Systems Review Of Systems: See Below ED EXAM, GENERAL - Physical Exam Exam: See Below Course - Vital Signs Last Recorded V/S: Last Vital Signs Temp 36.0 C L 01/27/20 08:15 Pulse 87 01/27/20 12:08 Resp 16 01/27/20 12:08 BP 136/80 01/27/20 12:08 Pulse Ox 96 01/27/20 12:08 - Orders/Labs/Meds Meds: Medications Discontinued Medications Generic Name Dose Route Start Last Admin Trade Name Freq PRN Reason Stop Dose Admin Hydrocodone Bitart/Acetaminophen 1 tab 01/27/20 08:52 01/27/20 08:56 [place] 325-5 Mg PO 01/27/20 08:53 1 tab ONETIME ONE Administration Fentanyl Confirm 01/27/20 10:25 Sublimaze Administered 01/27/20 10:26 Dose 100 mcg .ROUTE .STK-MED ONE Lactated Ringer's 1,000 mls @ 125 mls/hr 01/27/20 10:30 01/27/20 10:26 Ringers, Lactated IV 125 mls/hr ASDIRECTED MADELYN Administration Midazolam HCl Confirm 01/27/20 10:25 Versed 1 Mg/Ml Administered 01/27/20 10:26 Dose 2 mg .ROUTE .STK-MED ONE Ondansetron HCl 4 mg 01/27/20 08:53 01/27/20 08:56 Zofran Odt PO 01/27/20 08:54 4 mg ONETIME ONE Administration Propofol Confirm 01/27/20 10:24 Diprivan 20 Ml Administered 01/27/20 10:25 Dose 200 mg .ROUTE .STK-MED ONE Departure - Departure Time of Disposition: 12:08 Disposition: Home, Self-Care 01 Condition: Fair Clinical Impression: Elbow dislocation Qualifiers: Encounter type: initial encounter Laterality: right Qualified Code(s): S53.104A - Unspecified dislocation of right ulnohumeral joint, initial encounter Radial head fracture, closed Qualifiers: Encounter type: initial encounter Fracture alignment: nondisplaced Laterality: right Qualified Code(s): S52.124A - Nondisplaced fracture of head of right radius, initial encounter for closed fracture - Discharge Information *PRESCRIPTION DRUG MONITORING PROGRAM REVIEWED*: No *COPY OF PRESCRIPTION DRUG MONITORING REPORT IN PATIENT NIKHIL: No Instructions: Cast or Splint Care, Adult, [id number], How To Use a Sling, [id number], Elbow Dislocation, [id number], Radial Head Fracture, [id number] Referrals: Jasvir Harding MD [Physician] - Forms: ED Department Discharge Additional Instructions: The patient is informed of any results of their evaluation and diagnostic workup and all questions are answered. They are given discharge instructions and return precautions. The patient is stable for discharge. The patient states they understand and agree with the plan and that they will return if their symptoms get worse or if they have any new concerns. The following information is given to patients seen in the emergency department who are being discharged to home. This information is to outline your options for follow-up care. We provide all patients seen in our emergency department with a follow-up referral. The need for follow-up, as well as the timing and circumstances, are variable depending upon the specifics of your emergency department visit. If you don't have a primary care physician on staff, we will provide you with a referral. We always advise you to contact your personal physician following an emergency department visit to inform them of the circumstance of the visit and for follow-up with them and/or the need for any referrals to a consulting specialist. The emergency department will also refer you to a specialist when appropriate. This referral assures that you have the opportunity for follow-up care with a specialist. All of these measure are taken in an effort to provide you with optimal care, which includes your follow-up. Under all circumstances we always encourage you to contact your private physician who remains a resource for coordinating your care. When calling for follow-up care, please make the office aware that this follow-up is from your recent emergency room visit. If for any reason you are refused follow-up, please contact the [facility] Emergency Department at and asked to speak to the emergency department charge nurse. Today you were evaluated on an emergent basis. You were diagnosed with a right elbow dislocation and a right radial fracture. We were able to put your elbow back into a place. I would expect pain to increase for the next 48 hours and then improved. I recommend using Tylenol 1000 mg every 6 hours and ibuprofen 400 mg every 6 hours at least for the next 2 days and then use as needed after that. If you are to develop any numbness or weakness or worsening pain please return to the emergency department. I would like you to follow-up with orthopedics within 1 week given the radial head fracture. [facility] [address], [address] [place] [address] Sepsis Event Note (ED) - Evaluation Sepsis Screening Result: No Definite Risk - Focused Exam Vital Signs: Vital Signs Temp Pulse Resp BP Pulse Ox 01/27/20 12:08 87 16 136/80 96 01/27/20 11:08 81 16 118/67 96 01/27/20 10:18 66 18 113/72 99 01/27/20 09:57 72 16 106/59 L 100 01/27/20 08:54 67 16 128/72 98 01/27/20 08:15 36.0 C L 66 18 117/66 97
== END 2020-01-27 12:22 | disposition home or self-care (01) ==
LOC: MW.ED 08:03
DX: S52.124A Nondisplaced fracture of head of right radius, initial encounter for closed fracture (principal); S42.131A Displaced fracture of coracoid process, right shoulder, initial encounter for closed fracture; I10 Essential (primary) hypertension; E78.00 Pure hypercholesterolemia, unspecified; F41.9 Anxiety disorder, unspecified; F32.9 Major depressive disorder, single episode, unspecified; E66.9 Obesity, unspecified; Z68.37 Body mass index [BMI] 37.0-37.9, adult; Z88.8 Allergy status to other drugs, medicaments and biological substances; Z79.899 Other long term (current) drug therapy; W00.0XXA Fall on same level due to ice and snow, initial encounter
CPT/HCPCS: 24600; 73030; 73060; 73070; 99283; A9270; J2250; J2704; J7120; 01730; J3010